=== PATIENT | male | born 2000 | race Caucasian/White ===

== ENCOUNTER 2021-02-09 11:06 | Outpatient (CLI) | payer OTHER, SELFPAY ==
[2021-02-09 11:42] LABS: Source Nasal/Nares
[2021-02-09 12:38] LABS: COVID-19 PCR POSITIVE (Negative)
== END 2021-02-09 11:07 | disposition home or self-care (01) ==
LOC: BCD 11:19
PROVIDERS: Visit Provider Advanced Practice Midwife
DX: Z20.822 Contact with and (suspected) exposure to COVID-19 (principal)
CPT/HCPCS: 87635

== ENCOUNTER 2021-05-21 17:46 | Emergency (ER) | payer OTHER, SELFPAY ==
[2021-05-21 17:50] VITALS: BP 146/80; PULSE 96; RESP 18; TEMP 37.1; O2SAT 100
--- NOTE | 2021-05-21 18:00 | DI.RAD_ITS ---
Exam(s) XR FINGER RT MIDDLE EXAM: XR FINGER RT MIDDLE CLINICAL HISTORY: Laceration, R/O Fracture/FB. TECHNIQUE: 2D digital imaging was performed. COMPARISON: No exams were available for comparison FINDINGS: BONES: No acute fracture is present. No bony destructive lesion is seen. JOINTS: No dislocation present. SOFT TISSUE: Small laceration near the middle phalanx. No foreign body. IMPRESSION: Laceration. No evidence of acute fracture, dislocation, or subluxation. DATA REPOSITORY: RADIATION DOSE DELIVERED:
--- NOTE | 2021-05-21 18:06 | W.ED.GENAD ---
Discharge Plan Disposition Patient Disposition: HOME Condition: Stable Discharge Details Clinical Impression: Laceration of finger of right hand Primary Care Provider: Haritha,Local ED Provider: Tish Denise Home Meds and New Rx's Prescriptions: No Action multivitamin [Multiple Vitamins] Tablet 1 tab PO DAILY RF: 0 Discharge Instructions Instructions: Finger Laceration (ED) Additional Instructions: Keep clean and dry. After 12 to 24 hours you may wash under running soap and water. No soaking. Allowed to air dry daily. Wash with soap and water. Have sutures removed in 7 days. You may return here to have sutures removed or have them removed to urgent care at your convenience. Return to the ER for any signs of infection including increased redness, swelling, drainage or red streaks. Wear the splint while at work. Please take Tylenol or Ibuprofen with food every 4-6 hours as needed for pain and swelling. Medical Decision Making 21-year-old male presents to the ER with chief complaint of right middle finger laceration which occurred approximately 5:00. He reports that he was working on a chain saw blade which was new when his hand slipped and he cut his finger. He has been unable to get it to stop bleeding. He has approximately 2.5 cm linear laceration noted to the medial aspect of his right middle finger. Small venous blood is noted. He has full range of motion of extension and flexion to his finger. He does not know when his last tetanus vaccination was. Tdap, X-R ordered to rule out fracture or foreign body. Wound anesthetized with 1% lidocaine digital block as noted in procedure above. Patient tolerated well anesthesia was achieved. Laceration was repaired with 2 simple interrupted sutures. Small amount of Dermabond glue was placed to the tip of the laceration. A baseball splint was applied to the finger. Patient wishes to go back to work so we will immobilize finger to prevent splinting of the sutures. I discussed home care with him he verbalized understanding. Discussed strict return instructions. This text was generated using [employer] system, please disregard any oddities of phrase or misspellings. HPI General Mode of arrival: ambulatory. Date/Time Provider Initiated Documentation: 05/21/21 17:54. Limitations to Documentation: no limitations. Information obtained by: patient and RN notes reviewed. HPI Narrative: 21-year-old male presents to the ER with chief complaint of right middle finger laceration which occurred approximately 5:00. He reports that he was working on a chain saw blade which was new when his hand slipped and he cut his finger. He has been unable to get it to stop bleeding. He has approximately 2.5 cm linear laceration noted to the medial aspect of his right middle finger. Small venous blood is noted. He has full range of motion of extension and flexion to his finger. He does not know when his last tetanus vaccination was. Related Data Home Medications Medication Instructions Recorded Confirmed multivitamin [Multiple Vitamins] 1 tab PO DAILY 05/21/21 05/21/21 Allergies Allergy/AdvReac Type Severity Reaction Status Date / Time No Known Allergies Allergy Unverified 05/21/21 17:53 General Stated Complaint: Laceration NANDO: 4 Review of Systems All systems reviewed & are unremarkable except as noted in HPI and below Integumentary/Breasts Skin/Breast: Reports as per HPI and Reports wounds PFSH All Active Problems (Updated 05/21/21 @ 19:01 by Tish Denise) Laceration of finger of right hand (Acute) Social History Smoking/Tobacco Use Status: Never Smoking risk assessment performed?: Yes Alcohol Intake: never Drug use: Never Substance use type: does not use Do you feel safe at home: Yes Do you feel safe in your relationship?: Yes Exam Extrem Right upper extremity: hand Details: tendon exam abnormal, normal ROM of fingers and laceration 3rd digit ulnar aspect mid Details: linear, actively bleeding, involving subcutaneous tissue, with motor nerve function intact and with sensation intact Hand/finger images: 1. Laceration Course Vital Signs Vital signs: Vital Signs Temperature 37.1 C 05/21/21 17:50 Pulse 96 H 05/21/21 17:50 Respiratory Rate 18 05/21/21 17:50 Blood Pressure 146/80 H 05/21/21 17:50 Pulse Oximetry 100 05/21/21 17:50 Temperature 37.1 C 05/21/21 17:50 Temperature Source Skin 05/21/21 17:50 Pulse 96 H 05/21/21 17:50 Respiratory Rate 18 05/21/21 17:50 Respiratory Effort Non-Labored 05/21/21 17:54 Blood Pressure 146/80 H 05/21/21 17:50 Pulse Oximetry 100 05/21/21 17:50 Pain Level 3 05/21/21 17:50 Procedures Laceration Laceration 1: Site: hand Side (If applicable): right Size (cm): 2 Description: linear Depth: simple, single layer Local Anesthetic: Lidocaine 1% Amount of anesthesia used (mL): 3 Pre-repair: wound explored, irrigated extensively and deep structures intact Skin layer closed with: nylon Size (cm): 5-0 Number of sutures: 2 Technique: simple, interrupted Nerve Block Nerve Block 1: Time out performed: No Local Anesthetic: Lidocaine 1% Amount of anesthesia used (mL): 2.5 Side: right Nerve Blocks: digital (Middle finger) Patient Tolerated Procedure: well Complications: none
[2021-05-21] MEDS: Acetaminophen 500 MG TAB (19:19)
--- NOTE | 2021-05-21 19:24 | DI.VRAD_ITS ---
PROCEDURE INFORMATION: Exam: XR Right Finger(s) Exam date and time: 05/21/2021 6:07 PM Age: 21 years old Clinical indication: Injury or trauma; Other: Saw blade; Laceration; Right; Middle finger; Injury date: 05/21/2021 TECHNIQUE: Imaging protocol: XR Right fingers. Views: Minimum 2 views. Total images: 3 COMPARISON: No relevant prior studies available. FINDINGS: Bones/joints: No fracture. Soft tissues: No foreign body. Slight soft tissue irregularity in the medial distal 3rd finger consistent with history of laceration. Other findings: Normal alignment. IMPRESSION: 1. Soft tissue laceration in the medial right 3rd finger. 2. No fracture or foreign body. Dictated and Authenticated by: Josef Mccall MD. Ordering:KOKO Winston MD
== END 2021-05-21 19:18 | disposition home or self-care (01) ==
PROVIDERS: Emergency Provider Registered Nurse Emergency
DX: S61.212A Laceration without foreign body of right middle finger without damage to nail, initial encounter (principal); W29.3XXA Contact with powered garden and outdoor hand tools and machinery, initial encounter
CPT/HCPCS: 12001; 90471; 99283; 73140; 99282; J3490

== ENCOUNTER 2023-09-25 18:26 | Outpatient (CLI) | payer OTHER, SELFPAY ==
[2023-09-25 17:05] LABS: Abs Immature Grans 0.08 10^3/uL (0.0-0.06); Absolute Basophil Count 0.02 10^3/uL (0.0-0.2); Absolute Lymphocyte Count 1.69 10^3/uL (1.2-3.4); Absolute Monocyte Count 0.66 10^3/uL (0.1-0.8); Basophils % 0.2; HCT 46.4 % (40.0-50.0); HGB 15.8 g/dL (13.5-17.5); Immature Grans % 0.7; Lymphocytes % 13.8; MCH 30.3 pg (27.0-33.0); MCHC 34.1 % (32.0-36.0); MCV 89 fL (80-95); MPV 9.5 fL (8.0-11.0); Monocytes % 5.4; Neutrophils % 79.9; Platelet Count 342 10^3/uL (130-400); RBC 5.21 10^6/uL (4.36-5.78); RDW 12.3 % (11.8-14.1); RDW-SD 40.6 fL; WBC 12.26 10^3/uL (4.4-10.8)
[2023-09-25 17:13] LABS: ESR < 1 mm/hr (0-15)
[2023-09-25 18:38] LABS: ALT 19 U/L (16-63); AST 10 U/L (15-37); Albumin 3.8 g/dL (3.4-5.0); Alkaline Phosphatase 62 U/L (46-116); Anion Gap 6.9 mmol/L (3-11); BUN 16 mg/dL (7-18); Bilirubin, Total 0.3 mg/dL (0.2-1.0); C-Reactive Protein 0.71 mg/dL (<or=0.5); CO2 32.1 mmol/L (21.0-32.0); Calcium 9.3 mg/dL (8.5-10.1); Chloride 103 mmol/L (98-107); Estimated GFR 109.13 (mL/min/1.73m2); Glucose 112 mg/dL (74-106); Potassium 5.1 mmol/L (3.5-5.1); Sodium 142 mmol/L (136-145); Total Protein 6.4 g/dL (6.4-8.2)
== END 2023-09-25 18:27 | disposition home or self-care (01) ==
LOC: LBO 18:26
PROVIDERS: PCP Family Medicine; Visit Provider Nurse Practitioner Acute Care
DX: L50.9 Urticaria, unspecified (principal)
CPT/HCPCS: 36415; 80053; 85652; 85025; 86140